=== PATIENT | male | born 1960 | race Caucasian/White ===

== ENCOUNTER 2018-06-17 10:56 | Emergency (ER) | payer MEDICARE ==
--- NOTE | 2018-06-17 11:50 | ED Physician Documentation ---
PD HPI HEAD INJURY - Stated complaint Stated Complaint: R EYE/FACE PX - Chief complaint Chief Complaint: Neuro - History obtained from History obtained from: Patient - History of Present Illness Mechanism of head injury: Fell Where head injury occurred: Home Timing - onset: Last night Location of injury: Front Associated symptoms: Other (Facial injury). No: LOC, AMS Contributing factors: Anticoagulated - Additional information Additional information: The patient is a 57-year-old male who tripped over a cat last night and fell, hitting his face on a cabinet. He denies loss of consciousness, but presents with right periorbital ecchymosis and diplopia. He denies headache, but does report facial discomfort. He reports slight nausea, without vomiting. He reports feeling dizzy when standing, because of the double vision. He denies neck pain, numbness or weakness. Past medical history is significant for coarctation of the aorta for which he has undergone 3 open heart procedures, including aortic valve replacement with titanium valve. He is on warfarin. Review of Systems Constitutional: denies: Fever Eyes: reports: Other (Diplopia) Ears: denies: Ear pain Nose: denies: Congestion Throat: denies: Sore throat Cardiac: denies: Chest pain / pressure Respiratory: denies: Dyspnea, Cough GI: reports: Nausea (slight). denies: Abdominal Pain, Vomiting : denies: Dysuria Skin: reports: Laceration (s) (right infraorbital region). denies: Rash Musculoskeletal: denies: Neck pain, Extremity pain Neurologic: reports: Head injury. denies: Focal weakness, Numbness, Altered mental status, Headache, LOC PD PAST MEDICAL HISTORY - Past Medical History Cardiovascular: Hypertension, High cholesterol, Valve disorder, Other ( Coarctation of the Aorta) - Past Surgical History Cardiovascular: Coronary stent, Valve replacement - Present Medications Home Medications: Ambulatory Orders Medication Instructions Recorded Confirmed Amlodipine Besylate 10 mg PO DAILY 06/17/18 06/17/18 Aspirin 81 mg PO DAILY 06/17/18 06/17/18 Atorvastatin Calcium 40 mg PO DAILY 06/17/18 06/17/18 Carvedilol 25 mg PO DAILY 06/17/18 06/17/18 Lisinopril 20 mg PO BID 06/17/18 06/17/18 Warfarin Sodium 5 mg PO DAILY 08/03/18 08/03/18 cloNIDine 0.3 MG PATCH 06/17/18 [[id number]] - Allergies Allergies/Adverse Reactions: Allergies Allergy/AdvReac Type Severity Reaction Status Date / Time morphine AdvReac Headache Verified 06/17/18 11:17 - Social History Does the pt smoke?: No Smoking Status: Never smoker Does the pt drink ETOH?: Yes Does the pt have substance abuse?: No - Immunizations Immunizations are current?: Yes PD ED PE NORMAL - Vitals Vital signs reviewed: Yes (normal) - General General: Alert and oriented X 3, Well developed/nourished - HEENT HEENT: PERRL, Other (Right periorbital ecchymosis. Right conjunctival hemorrhage. Pupils are equal round reactive to light. There is decreased elevation of the right eye. 1.5 cm superficial laceration over the maxillary prominence.) - Neck Neck: No bony TTP, No adenopathy - Cardiac Cardiac: RRR, Other (Metallic click, consistent with titanium valve.) - Respiratory Respiratory: No respiratory distress, Clear bilaterally - Abdomen Abdomen: Soft, Non tender, Other (Rotund abdomen.) - Back Back: No CVA TTP, No spinal TTP - Derm Derm: No rash - Extremities Extremities: No edema, No calf tenderness / cord - Neuro Neuro: Alert and oriented X 3, No motor deficit, No sensory deficit Results - Vitals Vitals: Vital Signs - 24 hr 06/17/18 06/17/18 06/17/18 11:12 11:22 13:16 Temperature 36.4 C L Heart Rate 63 61 64 Respiratory 16 16 16 Rate Blood Pressure 119/79 123/79 134/91 H O2 Saturation 98 99 99 Oxygen O2 Source Room air - Labs Labs: Laboratory Tests 06/17/18 12:00 PT 45.9 H INR 4.3 H - Rads (name of study) CT head Radiology: Prelim report reviewed, EMP read contemporaneously, See rad report (1 ) No acute intracranial hemorrhage, mass-effect, or other acute abnormality. 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 3) probable acute nondisplaced fracture of the right infra orbital wall. Please see separately reported maxillofacial CT for additional detail.) CT Facial bones Radiology: Prelim report reviewed, EMP read contemporaneously, See rad report ( Acute comminuted minimally displaced fracture of the right inferior orbital wall. There is no displacement or entrapment of the orbital contents. There is superficial soft tissue swelling in the right periorbital region.) Procedures - Laceration (location) right maxillary prominence Length in cm: 1.5 Wound type: Curved, Into subcut fat, Clean Neurovascular status: Sensory intact, Motor intact, Vascular intact Wound Preparation: Hibiclens, Irrigated copiously NS, Wound explored. No: FB identified Skin layer closure: Dermabond Other: Patient tolerated well, No complications, Neurovascular intact, Tetanus UTD Complexity: Simple PD MEDICAL DECISION MAKING - ED course Complexity details: reviewed results, re-evaluated patient, considered differential, d/w patient ED course: The patient's presentation is significant for a right orbital wall fracture secondary to low impact fall. There is no entrapment of orbital soft tissue. He does have a scleral hemorrhage and periorbital ecchymosis. Visual acuity is intact, despite mild diplopia. Head CT without contrast reveals no acute intracranial hemorrhage. Treatment in the emergency department included cleaning, irrigation, and repair of the facial wound using Dermabond and Steri-Strips. His INR is above therapeutic level at 4.3. I advised that he hold tomorrow's dose of Coumadin. He is to follow-up with his primary physician within 1 week. I discussed with him potentially worrisome signs or symptoms that should prompt reevaluation in the emergency department. - Sepsis Event Vital Signs: Vital Signs - 24 hr 06/17/18 06/17/18 06/17/18 11:12 11:22 13:16 Temperature 36.4 C L Heart Rate 63 61 64 Respiratory 16 16 16 Rate Blood Pressure 119/79 123/79 134/91 H O2 Saturation 98 99 99 Oxygen O2 Source Room air Departure - Departure Disposition: 01 Home, Self Care Clinical Impression: Scleral hemorrhage of right eye, Anticoagulated on Coumadin Right orbital fracture Qualifiers: Encounter type: initial encounter Fracture type: closed Qualified Code(s): S02.81XA - Fracture of other specified skull and facial bones, right side, initial encounter for closed fracture Facial laceration Qualifiers: Encounter type: initial encounter Qualified Code(s): S01.81XA - Laceration without foreign body of other part of head, initial encounter Condition: Stable Instructions: ED Fx Face, ED Head Injury Closed Follow-Up: TONYA AMOR [Primary Care Provider] - Comments: Apply ice pack to the swollen area intermittently for the next 2 or 3 days. He can use ibuprofen, up to 800 mg 3 times daily if needed for pain or discomfort. Hold your warfarin dose tomorrow. Follow up with your primary physician within 1 week. Call to schedule appointment. Return to the emergency department if you develop increasing visual impairment, increasing headache, persistent vomiting, or otherwise worsening symptoms. Discharge Date/Time: 06/17/18 13:19
[2018-06-17 12:14] LABS: INR 4.3 (0.8-1.2); PT - PROTHROMBIN TIME 45.9 secs (9.9-12.6)
--- NOTE | 2018-06-17 12:30 | CT Report ---
Procedure Date: 06/17/2018 Accession Number: [id number] / [id number] Procedure: CT - Head W/O CPT Code: FULL RESULT: EXAM: CT HEAD EXAM DATE: 06/17/2018 12:13 PM. CLINICAL HISTORY: Head injury, on Coumadin. Blow to left eye last night. COMPARISON: Maxillofacial CT performed the same time. TECHNIQUE: Multiaxial CT images were obtained from the foramen magnum to the vertex. Reformats: Coronal. IV contrast: None. In accordance with CT protocol optimization, one or more of the following dose reduction techniques were utilized for this exam: automated exposure control, adjustment of mA and/or KV based on patient size, or use of iterative reconstructive technique. FINDINGS: Parenchyma: No intraparenchymal hemorrhage. No evidence of mass, midline shift, or CT findings of acute infarction. There is an area of encephalomalacia in the left posterior frontal cortex measuring approximately 3.8 x 2.9 cm (series 2 image 20), consistent with a remote prior infarct. Galeano-white differentiation is otherwise distinct. Extraaxial Spaces: Normal for age. No subdural or epidural collections identified. Ventricles: Normal in size and position. Sinuses and Orbits: There is partial opacification of the right maxillary sinus with an air-fluid level. There is mild mucosal thickening of the left maxillary sinus. The remainder of the visualized paranasal sinuses and mastoid air cells are clear. The orbits appear within normal limits. Bones: There is a probable nondisplaced acute fracture of the right inferior orbital wall, better seen on dedicated maxillofacial CT performed at the same time. No calvarial defect or fracture. Other: None. IMPRESSION: 1. No acute intracranial hemorrhage, mass effect, or other acute abnormality. 2. Left posterior frontal cortical focus of encephalomalacia with a remote infarct. 3. Probable acute nondisplaced fracture of the right inferior orbital wall. Please see separately reported maxillofacial CT for additional detail. [facility]
--- NOTE | 2018-06-17 12:39 | CT Report ---
Procedure Date: 06/17/2018 Accession Number: [id number] / [id number] Procedure: CT - Facial Bones W/O CPT Code: FULL RESULT: EXAM: CT MAXILLOFACIAL WITHOUT CONTRAST EXAM DATE: 06/17/2018 12:13 PM. CLINICAL HISTORY: Rt. Periorbital ecchymosis and diplopia post fall. COMPARISONS: HEAD W/O 06/17/2018 12:07 AM. TECHNIQUE: Thin-section axial images were acquired of the face without contrast. Post-processing: Coronal and sagittal reformats. Other: None. In accordance with CT protocol optimization, one or more of the following dose reduction techniques were utilized for this exam: automated exposure control, adjustment of mA and/or KV based on patient size, or use of iterative reconstructive technique. FINDINGS: Soft Tissue: There is superficial right periorbital soft tissue swelling. The infratemporal fossa and parapharyngeal spaces are unremarkable. Orbits: Symmetric and unremarkable. Bones: There is an acute comminuted minimally displaced fracture of the right inferior orbital wall. There is no displacement or entrapment of intraorbital contents. The remainder of visualized bones of the face appear intact. Chronic appearing irregularity of the left zygoma is suggestive of old healed left zygomaticomaxillary fracture. Temporomandibular Joints: The temporomandibular joints are symmetric and normally located. Sinuses: There is partial opacification of the right maxillary sinus with fluid density suggestive of blood. There is moderate mucosal thickening of the left maxillary sinus. The remainder of the visualized paranasal sinuses and mastoid air cells are clear. Other: Poor dentition with multiple chronically absent teeth, significantly eroded right mandibular molar teeth, and significant periapical lucency around left maxillary molars. No definite acute traumatic dental abnormality identified. IMPRESSION: Acute comminuted minimally displaced fracture of the right inferior orbital wall. There is no displacement or entrapment of the orbital contents. There is superficial soft tissue swelling in the right periorbital region. RADIA
[2018-06-17 13:17] VITALS: BP 134/91
== END 2018-06-17 13:19 | disposition home or self-care (01) ==
LOC: ED 10:56
DX: H11.31 Conjunctival hemorrhage, right eye (principal); S02.81XA Fracture of other specified skull and facial bones, right side, initial encounter for closed fracture; S01.81XA Laceration without foreign body of other part of head, initial encounter; W01.0XXA Fall on same level from slipping, tripping and stumbling without subsequent striking against object, initial encounter; Y92.009 Unspecified place in unspecified non-institutional (private) residence as the place of occurrence of the external cause; Z79.01 Long term (current) use of anticoagulants
CPT/HCPCS: 12011; 36415; 70450; 70486; 85610; 99284

== ENCOUNTER 2019-01-19 15:24 | Outpatient (CLI) | payer MEDICARE | END 2019-01-19 15:25 | disposition home or self-care (01) | LOC: RT 15:24 | PROVIDERS: ATTEND Internal Medicine Cardiovascular Disease | DX: I25.810 Atherosclerosis of coronary artery bypass graft(s) without angina pectoris (principal) | CPT/HCPCS: 93005 ==